=== PATIENT | male | born 1990 | race Caucasian/White ===

== ENCOUNTER 2022-04-29 18:53 | Emergency (ER) | payer OTHER ==
[2022-04-29 21:13] LABS: HEMOGLOBIN 18.1 gm/dl (14.0-17.5); RED BLOOD COUNT 5.44 M/UL (4.20-5.50); WHITE BLOOD COUNT 7.8 K/UL (4.5-11.0)
[2022-04-29 21:19] LABS: BUN/CREATININE RATIO 22 (0-10)
== END 2022-04-30 00:45 | disposition home or self-care (01) ==
LOC: ER1 18:53
PROVIDERS: Emergency Medicine
DX: R07.89 Other chest pain (principal); Z20.822 Contact with and (suspected) exposure to COVID-19
CPT/HCPCS: 71045; 80053; 80307; 81001; 82550; 82553; 83880; 84484; 85025; 85652; 86140; 93005; 96374; 99285; C9113; G0480; U0002